=== PATIENT | male | born 1950 | race Caucasian/White ===

== ENCOUNTER → 2017-11-03 08:48 | Outpatient (CLI) | payer MEDICARE, SELFPAY ==
[2017-11-03 09:13] LABS: Alanine Aminotransferase 26 U/L (12-78); Alkaline Phosphatase 80 U/L (46-116); Aspartate Amino Transferase 11 U/L (15-37); Bilirubin,Direct 0.1 mg/dL (0.0-0.2); Bilirubin,Total 0.5 mg/dL (0.2-1.0); Total Protein,Serum 7.2 gm/dL (6.4-8.2)
== END ==
PROVIDERS: Visit Provider Internal Medicine Cardiovascular Disease
DX: E78.5 Hyperlipidemia, unspecified (principal); I10 Essential (primary) hypertension
CPT/HCPCS: 36415; 80076

== ENCOUNTER → 2017-11-19 07:00 | Outpatient (CLI) | payer MEDICARE, SELFPAY ==
[2017-11-19 07:48] LABS: Alanine Aminotransferase 23 U/L (12-78); Albumin Level 3.8 gm/dL (3.4-5.0); Albumin/Globulin Ratio 1.2 (1.1-1.8); Alkaline Phosphatase 80 U/L (46-116); Anion Gap 8.4 mEq/L (5-15); Aspartate Amino Transferase 16 U/L (15-37); Bilirubin,Total 0.3 mg/dL (0.2-1.0); Blood Urea Nitrogen 27 mg/dL (7-18); Calcium 8.4 mg/dL (8.5-10.1); Carbon Dioxide 28 mmol/L (21.0-32.0); Chloride 110 mmol/L (98-107); Chol/HDL Ratio 2.2 (1-3.5); Cholesterol 145 mg/dL (140-200); Creatinine,Serum 1.05 mg/dL (0.70-1.30); Estimated Glomerular Filt Rate 71 ml/min (>60); GFR (African American) 86 ML/MIN (>60); Globulin 3.2 gm/dl (1.3-3.2); Glucose 105 mg/dL (74-106); HDL Cholesterol 66 mg/dL (27-67); LDL Cholesterol 68 mg/dL (0-130); Potassium 4.4 mmoL/L (3.5-5.1); Prostate Specific Ag Screen 0.5 ng/mL (0.0-4.0); Sodium 142 mmol/L (136-145); Triglycerides 57 mg/dL (30-200); VLDL Cholesterol 11 mg/dL (0-40)
== END ==
PROVIDERS: Visit Provider Family Medicine
DX: E78.5 Hyperlipidemia, unspecified (principal); I25.10 Atherosclerotic heart disease of native coronary artery without angina pectoris; I10 Essential (primary) hypertension; Z12.5 Encounter for screening for malignant neoplasm of prostate
CPT/HCPCS: 36415; 80053; 80061; 82652; G0103

== ENCOUNTER → 2017-12-30 06:47 | Outpatient (CLI) | payer MEDICARE, SELFPAY ==
--- NOTE | 2017-12-30 06:50 | NM_ITS ---
CARDIOLITE SPECT MYOCARDIAL PERFUSION SCAN, REST AND STRESS: EXERCISE STRESS [facility] REVIEW QGS EF AND WALL MOTION EVALUATION: QPS - PERFUSION EVALUATION HISTORY: CAD, HTN, Family history DOSE: 10.00 mCi technetium 99m mibi intravenously at rest followed by 29.8 mCi technetium 99m mibi following the intravenous ministration of 0.4 mg of Lexiscan. Resting blood pressure is 178/96. Stress blood pressure 98/51. FINDINGS: Ejection fraction is calculated to be 54%. Stress images reveal reduced activity in the lateral wall while rest images reveal uniform myocardial activity. Gated images calculated ejection fraction of 54% with normal wall motion IMPRESSION: Lateral wall ischemia with normal ejection fraction normal wall motion. At least moderate risk stress test
--- NOTE | 2017-12-30 06:50 | CA_ITS ---
PROCEDURE: 2-D M-mode and color Doppler study INDICATIONS FOR THE TEST: Chest pain COPD Heart Murmur Tobacco Smoking Palpitations Fatigue Syncope Edema HypertensionXDiabetes Mellitus Rheumatic Fever SOBXDOEXObesity HyperlipidemiaX Family History HDX Additional History CAD PATIENT INFORMATION HEIGHT: 71 WEIGHT:209 GENDER: Male B/P:134/79 2-D/M-MODE INTERPRETATION: 2-D MEASUREMENTS OBSERVED VALUES IN CMS Right Ventricular Dimension (RVDd) 3.0 Interventricular Septum (Thickness)(IVsd) 1.0 Left Ventricular Internal Dimensions(LVIDd) 5.2 Left Ventricular Posterior Wall (Thickness)(LVPWd) 1.0 Aortic Root 3.3 Aortic Cusp Separation 1.9 Left Atrial Dimensions (LAD) 3.1 2D 1. Left atrium is mildly enlarged, left ventricle is normal size, mild concentric left ventricular hypertrophy, visually estimated ejection fraction 55% with no obvious regional wall motion abnormality. 2. The right atrium and right ventricle are mildly enlarged with normal contractility. 3. The aortic valve is minimally thickened and fibrosed. 4. The mitral and tricuspid valvular grossly normal. 5. The pulmonic valve is poorly visualized. 6. No significant pericardial effusion noted. DOPPLER INTERROGATION: Doppler interrogation of the aortic, mitral and tricuspid valvular presence of mild aortic, mild mitral and tricuspid regurgitation, tricuspid and jet velocity insufficient for calculation of the right ventricular systolic pressure, grade 1 diastolic dysfunction seen with tissue Doppler evidence of raised left atrial pressure. CONCLUSION: 1. Mildly enlarged left atrium, normal left ventricular size, mild concentric left ventricular hypertrophy, visually estimated ejection fraction 55% with no obvious regional wall motion abnormality, grade 1 diastolic dysfunction seen with tissue Doppler evidence of raised left atrial pressure. 2. Mild aortic, mild mitral and tricuspid regurgitation. 3. No significant pericardial effusion noted.
--- NOTE | 2017-12-30 07:40 | HMH.ITSHM ---
ATENOLOL ASA ATORVASTATIN D3
== END ==
PROVIDERS: PCP Family Medicine; Visit Provider Internal Medicine
DX: I25.10 Atherosclerotic heart disease of native coronary artery without angina pectoris (principal); R06.02 Shortness of breath
CPT/HCPCS: 78452; 93017; 93306; A9502; J2785

== ENCOUNTER → 2018-01-15 07:48 | Outpatient (CLI) | payer MEDICARE, SELFPAY ==
[2018-01-15 09:14] LABS: Chloride 107 mmol/L (98-107); Potassium 4.4 mmoL/L (3.5-5.1); Sodium 142 mmol/L (136-145)
[2018-01-15 09:23] LABS: Anion Gap 12.4 mEq/L (5-15); Blood Urea Nitrogen 24 mg/dL (7-18); Carbon Dioxide 27 mmol/L (21.0-32.0); Creatinine,Serum 0.97 mg/dL (0.70-1.30); Estimated Glomerular Filt Rate 77 ml/min (>60); GFR (African American) 94 ML/MIN (>60); Glucose 96 mg/dL (74-106)
== END ==
PROVIDERS: PCP Family Medicine; Visit Provider Internal Medicine
DX: G47.30 Sleep apnea, unspecified (principal); R40.0 Somnolence; R06.83 Snoring; R06.02 Shortness of breath; I25.10 Atherosclerotic heart disease of native coronary artery without angina pectoris
CPT/HCPCS: 36415; 80048; 95806

== ENCOUNTER 2019-12-16 05:15 | Observation (INO) | payer MEDICARE, SELFPAY ==
[2019-12-16] VITALS (9 sets, daily range): BP systolic 131–188; BP diastolic 73–133; PULSE 50–60; RESP 16–18; TEMP 36.4–37.2; O2SAT 97–99; BMI 26.6
--- NOTE | 2019-12-16 05:12 | ECG_ITS ---
APPROVED REPORT Exam: Resting ECG HR:55 bpm ECG Measurements Heart Rate 55 AXES ME 148 P 68 QRSd 76 QRS 17 QT 478 T 9 QTc 457 <Conclusion> Sinus bradycardia Otherwise normal ECG Electronically signed by : Abdon Lane, 12/19/2019 13:17:45
--- NOTE | 2019-12-16 05:21 | XR_ITS ---
PROCEDURE: XR CHEST 2V CLINICAL HISTORY: chest pain COMPARISON: No exams were available for comparison FINDINGS: The cardiomediastinal silhouette and pulmonary vascularity are within normal limits. No lobar consolidation or collapse. There is some hyperinflation toward the upper lobe suggesting COPD. Clinical correlation needed. No acute bony abnormalities. IMPRESSION: No acute findings. Dictated by: Esdras Ascencio MD 12/16/2019 07:31 Electronically signed by Esdras Ascencio MD in [place] 12/16/2019 07:31
--- NOTE | 2019-12-16 05:32 | HMH.EDCP ---
ED Disposition Clinical Impression: Essential hypertension Chest pain Qualifiers: Chest pain type: precordial pain Qualified Code(s): R07.2 - Precordial pain Disposition: Admitted as Observation Condition on Discharge: Good - Critical Care Critical Care Time: No Attestation: On 12/16/19, the high probability of a clinically significant, sudden or life threatening deterioration of the following system(s) required my full and direct attention, intervention and personal management. The time I documented below is in addition to time spent performing reported procedures but includes the following listed in this critical care notation. Medical Decision Making - Medical Records Medical records reviewed: Yes: I reviewed the patient's medical records. - Lars Inquiry Pt receiving controlled substance: No Vital Signs: 12/16/19 05:16 12/16/19 06:08 12/16/19 06:31 Temperature 97.5 F L Temperature Source Oral Pulse Rate [Right Brachial] 54 L 53 L 51 L Respiratory Rate 16 16 Blood Pressure [Right Arm] 185/110 H 172/90 H 150/133 H Blood Pressure Mean [Right Arm] 135 117 138 Blood Pressure Source [Right Arm] Automatic Cuff Automatic Cuff Automatic Cuff Blood Pressure Position [Right Arm] Sitting Sitting Sitting 02 Sat by Pulse Oximetry 98 98 99 Oxygen Delivery Method Room Air Room Air Room Air - Lab Data Lab results reviewed: Yes: I reviewed the patient's lab results. Lab Results 12/16/19 05:10: WBC 4.8, RBC 3.95 L, Hgb 11.8 L, Hct 35.8 L, MCV 90.6, MCH 29.9, MCHC 33.0, RDW 13.9, Plt Count 136 L, MPV 9.5, Neut % (Auto) 62.3, Lymph % (Auto) 30.6, [place] % (Auto) 5.5, Eos % (Auto) 1.2, Baso % (Auto) 0.3, Neut # (Auto) 3.0, Lymph # (Auto) 1.5, [place] # (Auto) 0.3, Eos # (Auto) 0.1, Baso # (Auto) 0.0 12/16/19 05:10: Sodium 141, Potassium 4.3, Chloride 107, Carbon Dioxide 28, Anion Gap 10.3, BUN 23 H, Creatinine 0.90, Estimated Creat Clear 89, Estimated GFR 84, Est GFR ( Amer) 102, Glucose 140 H, Calcium 8.6, Troponin I 0.02 Result diagrams: 12/16/19 05:10 12/16/19 05:10 Orders (Tests/Meds): ED MEDICATIONS Generic Name Dose Route Start Last Admin Trade Name Freq PRN Reason Stop Dose Admin Sodium Chloride 1,000 mls @ 999 mls/hr 12/16/19 05:30 12/16/19 05:43 Sod Chlor 0.9% 1000ml Bag IV 12/16/19 06:30 999 mls/hr .Q1H1M FRANCY Administration Discontinued Medications Generic Name Dose Route Start Last Admin Trade Name Freq PRN Reason Stop Dose Admin Aspirin 324 mg 12/16/19 05:32 12/16/19 05:43 Aspirin 81mg Chewable Tablet PO 12/16/19 05:33 324 mg ONCE ONE Administration Nitroglycerin 1 gm 12/16/19 05:32 12/16/19 05:43 Nitroglycerin 1 Inch Oint Udp TD 12/16/19 05:33 1 gm ONCE ONE Administration ORDERS Category Date Time Status XR chest 2V Stat Exams 12/16/19 05:21 Taken Troponin I Q3H Lab 12/16/19 08:30 Ordered Troponin I Q3H Lab 12/16/19 11:30 Ordered - Radiology Data #1 Image(s): Chest Image Reviewed: Yes I reviewed the patient's radiology image Preliminary Findings: Normal/NAD - ECG Data Tracing #1 Arrhythmias present: sinus mana Ischemic changes: non-specific ST-T wave changes - Physician Consults Physician Consulted: danilo Reason -: Admission Chest Pain HPI - General Chief Complaint: Chest Pain Stated Complaint: Chest pain Time Seen by Provider: 12/16/19 05:25 Mode of Arrival: Ambulatory Source of Information: Patient, Medical Record Limitations: No Limitations Description of Symptoms (Recalled from ER Triage Doc. by RN): Patient reports he woke up around 0400 in a sweat and some left sided chest pain. Patient reports the pain only lasted a few minutes and he thinks it may have just been some indigestion or gas but his insisted that he come be evaluated. Patient is pain free at this time. - History of Present Illness HPI narrative: pt with acute onset of chest pain for 30 minutes with diaphoresis- pt with hx of
[2019-12-16 05:38] LABS: Chloride 107 mmol/L (98-107); Potassium 4.3 mmoL/L (3.5-5.1); Sodium 141 mmol/L (136-145)
[2019-12-16 05:40] LABS: Basophils % 0.3 % (0.1-2.0); Eosinophils # 0.1 K/mm3 (0.0-0.4); Eosinophils % 1.2 % (0.1-12.0); Hematocrit 35.8 % (42.0-52.0); Hemoglobin 11.8 g/dL (14.1-18.0); Lymphocytes # 1.5 K/mm3 (0.7-4.5); Lymphocytes % 30.6 % (10-50); Mean Corpuscular Hemoglobin 29.9 pg (27.0-31.2); Mean Corpuscular Volume 90.6 fl (80-94); Mean Platelet Volume 9.5 fl (7.4-10.4); Monocytes # 0.3 K/mm3 (0.1-1.0); Monocytes % 5.5 % (1.7-9.3); Neutrophils % 62.3 % (37.0-80.0); Platelet Count 136 K/mm3 (142-424); Red Blood Count 3.95 M/mm3 (4.60-6.20); Red Cell Distribution Width 13.9 % (11.5-17.5); White Blood Count 4.8 K/mm3 (4.8-10.8)
[2019-12-16 05:41] LABS: Anion Gap 10.3 mEq/L (5-15); Blood Urea Nitrogen 23 mg/dl (9-20); Calcium 8.6 mg/dl (8.4-10.2); Carbon Dioxide 28 mmol/L (22.0-30.0); Creatinine Clearance Estimated 89 mL/min (50-200); Estimated Glomerular Filt Rate 84 ml/min (>60); GFR (African American) 102 ML/MIN (>60); Glucose 140 mg/dl (74-100)
[2019-12-16 05:53] LABS: Troponin I 0.02 ng/ml (0.00-0.034)
--- NOTE | 2019-12-16 06:21 | PC.NURSE ---
spoke to and gave her an update. advised her that he will be getting admitted and she can call later and check in on him.
[2019-12-16 07:16] LABS: Chol/HDL Ratio 2.3 (1-3.5); Cholesterol 151 mg/dl (140-200); HDL Cholesterol 65 mg/dl (40-60); Triglycerides 87 mg/dl (30-150); VLDL Cholesterol 17 mg/dL (0-40)
[2019-12-16 07:27] LABS: Direct LDL Cholesterol 83.94 mg/dL (100-129)
--- NOTE | 2019-12-16 07:36 | PC.NURSE ---
Pt arrived to floor 0702, report given to Olya Spencer RN who is aware a bio has not been completed on pt. On tele, weight, vitals and pt resting in supine position, no pain reported.
--- NOTE | 2019-12-16 08:00 | CA_ITS ---
APPROVED REPORT EXAM: Comprehensive 2D, Doppler, and color-flow Echocardiogram Cake Stripper: Susanne Meraz CRT Ht: 6 ft 0 in Wt: 196lbs BSA: 2.11 BP: 150/133 mmHg Indications: Chest Pain, Hyperlipidemia, Hypertension/HDD 2D Dimensions LVOT 2.11 cm (M/F) 1.5-2.5 M-Mode Dimensions RVDd 2.89 cm (0.9-2.6) LVDd 4.84 cm (3.5-5.7) LVDs 3.29 cm (3.5-5.7) IVSd 1.96 cm (0.6-1.1) PWd 0.64 cm (0.6-1.1) EF (Teich) 60.00% FS 32.00% EDV (Teich) 109.60 mL ESV (Teich) 43.80 mL LV Diastology E/A Ratio 1.25 Mitral Valve MV A Velocity 73.00 (40-130 cm/s) Left Ventricle Left atrium is mildly enlarged, left ventricle is normal size, mild concentric left ventricular hypertrophy, visually estimated ejection fraction 55% with no regional wall motion abnormality, grade 2 diastolic dysfunction seen without tissue Doppler evidence of raise left atrial pressure. Right Ventricle Right atrium right ventricle mildly enlarged with normal contractility. Aortic Valve Aortic valve is minimally thickened and calcified, there is no aortic stenosis, there is trace aortic insufficiency. Mitral Valve Mitral valve is grossly normal, there is mild mitral regurgitation. Tricuspid Valve Tricuspid valve is grossly normal, there is mild tricuspid regurgitation, tricuspid regurgitation jet velocity is inadequate for calculation of the right ventricular systolic pressure. Pulmonic Valve Pulmonic valve is poorly visualized. Great Vessels Aortic root is normal size. Pericardium No significant pericardial effusion noted. Conclusion 1. Mild biatrial enlargement, normal left ventricular size, mild concentric left ventricular hypertrophy, visually estimated ejection fraction 55% with no regional wall motion abnormality, grade 2 diastolic dysfunction seen without tissue Doppler evidence of raise left atrial pressure. 2. Mildly enlarged right ventricle with normal contractility. 3. Thickened and calcified aortic valve without aortic stenosis, there is trace aortic insufficiency. 4. Mild mitral and tricuspid regurgitation. 5. No significant pericardial effusion noted. Electronically signed by : Je Faria, 12/16/2019 11:45:13
--- NOTE | 2019-12-16 08:03 | P.CONPHA_ITS ---
[facility] VTE Monitoring - Patient Demographics Admission date: 12/16/19 Report Date: 12/16/19 Time: 08:03 Allergies/Adverse Reactions: Patient Allergies No Known Allergies Allergy (Verified 12/16/19 05:23) Height: 1.83 m Weight: 88.932 kg Patient Problems: Current Active Problems Chest pain (Acute) Essential hypertension (Chronic) - VTE Risk Labs: VTE Related Lab Results Hgb 11.8 g/dL (14.1-18.0) L 12/16/19 05:10 Hct 35.8 % (42.0-52.0) L 12/16/19 05:10 Plt Count 136 K/mm3 (142-424) L 12/16/19 05:10 BUN 23 mg/dl (9-20) H 12/16/19 05:10 Creatinine 0.90 mg/dl (0.66-1.25) 12/16/19 05:10 Estimated Creat Clear 89 mL/min (50-200) 12/16/19 05:10 Was VTE Risk Assessment Performed: Yes VTE Score: 3 VTE Risk Level: Low Risk Clinical Trial Participant: No - Prophylaxis VTE Prophylaxis Ordered?: Yes Types of VTE Prophylaxis: TEDS Knee High
--- NOTE | 2019-12-16 08:27 | HMH.HP ---
*Admission Date: 12/16/19 <Diane Glover 12/16/19 08:33> *Chief complaint: chest pain <Diane Glover 12/16/19 08:33> *History of present illness: Mr. De Los Santos is a 69-year-old male with a history of hypertension, ASCVD, and hyperlipidemia who states he woke up at 4 AM last night having pain in the left side of his chest. He states it felt like somebody was sticking him with a needle. He was very sweaty but he denies any shortness of breath or radiation of pain. He states the pain lasted approximately 1 hour and his convinced him to come to the ER for evaluation. By the time he reached the emergency room his pain had resolved and has not returned. His troponin was negative. He is currently having an echo. <Diane Glover 12/16/19 08:33> [facility] History I have reviewed the patient's past medical history: Yes <Diane Glover 12/16/19 08:33> Medical History: Reports:: Coronary Artery Disease, Hyperlipidemia, Hypertension Denies:: Diabetes Mellitus Type 1, Diabetes Mellitus Type 2, MRSA <Diane Glover 12/16/19 08:33> *Have you ever received a pneumonia vaccine?: No <Diane Glover 12/16/19 08:33> *Have you received a flu vaccine this season?: No <Diane Glover 12/16/19 08:33> Other Surgeries: Yes: Cardiac Catheterization, Colonoscopy, Other (vasectomy) <Diane Glover 12/16/19 08:33> Amputation: No <Diane Glover 12/16/19 08:33> Fractures: No <Diane Glover 12/16/19 08:33> - *Social History Educational Level: Completed High School <Diane Glover 12/16/19 08:33> Smoking Status: Never smoker <Diane Glover 12/16/19 08:33> Alcohol Intake: never <Diane Glover 12/16/19 08:33> Alcohol Intake Frequency:: other <Diane Glover 12/16/19 08:33> Substance Use Type: denies use <Diane Glover 12/16/19 08:33> *Occupational Status:: retired <Diane Glover 12/16/19 08:33> Housing: house <Diane Glover 12/16/19 08:33> Household Members: spouse <Diane Glover 12/16/19 08:33> *Travel in the last 8 weeks: None <Diane Glover 12/16/19 08:33> Family Hx:: Cancer, Heart Attack, Hypertension <Diane Glover 12/16/19 08:33> Review of Systems - Constitutional Denies body ache(s), Denies chills, Denies fever(s) <Diane Glover 12/16/19 08:33> - Eyes Denies blurry vision, Denies double vision <Diane Glover 12/16/19 08:33> - ENT Reports nasal congestion, Denies sore throat <Diane Glover 12/16/19 08:33> - *Cardiovascular Reports chest pain, Reports excessive sweating, Denies shortness of breath, Denies rapid, pounding, or irregular heartbeat <Diane Glover 12/16/19 08:33> - *Respiratory Reports cough, Denies chest congestion, Denies shortness of breath <Diane Glover 12/16/19 08:33> - *Gastrointestinal Denies abdominal pain, Denies loose stools, Denies nausea, Denies vomiting <Diane Glover 12/16/19 08:33> - *Genitourinary Denies difficulty urinating, Denies painful urination <Diane Glover 12/16/19 08:33> - *Musculoskeletal Denies joint pain <Diane Glover 12/16/19 08:33> - *Neurologic Denies headache(s), Denies seizure-like activity, Denies dizziness, Denies weakness <Diane Glover 12/16/19 08:33> Meds Home Medications Medication Instructions Recorded Confirmed Type atenolol 50 mg tablet 50 mg PO DAILY tab 12/03/17 12/16/19 History atorvastatin 20 mg tablet 20 mg PO HS tab 12/03/17 12/16/19 History cholecalciferol (vitamin D3) 25 1,000 unit PO HS cap 12/03/1720 History mcg (1,000 unit) capsule Losartan Potassium [Cozaar 100mg 100 mg PO DAILY #90 tab 12/16/19 Rx Tablets] hydroCHLOROthiazide [HCTZ 12.5mg 12.5 mg PO DAILY #30 cap 12/16/19 Rx capsule] <Gume Joshua - 12/23/19 16:53> Allergies Allergy/AdvReac Type Severity Reaction Status Date / Time No Known Allergies Allergy Verified 12/16/19 05:23 <Gume Joshua - 12/23/19 16:53> Exam Vital signs and Labs for Last 24 Hours: Te
[2019-12-16 09:07] LABS: Troponin I 0.02 ng/ml (0.00-0.034)
--- NOTE | 2019-12-16 09:12 | HMH.CNCARD ---
History of Present Illness Consult date: 12/16/19 Requesting physician: Gume Joshua Consult reason: chest pain Chief complaint: chest pain, hypertension Additional Medical History:: 1. Hypertension 2. Normal coronary arteries, 01/2018 with normal left ventricular end-diastolic pressure and normal left ventricular ejection fraction 3. History of vasectomy in his early 20s complicated postop with infection with bilateral pneumothorax requiring bilateral chest tubes and ultimately tracheostomy, [facility] History of present illness: Mr. De Los Santos is a 69-year-old male with a history of hypertension, ASCVD, and hyperlipidemia who states he woke up at 4 AM last night having pain in the left side of his chest. He states it felt like somebody was sticking him with a needle. He was very sweaty but he denies any shortness of breath or radiation of pain. He states the pain lasted approximately 1 hour and his convinced him to come to the ER for evaluation. By the time he reached the emergency room his pain had resolved and has not returned. His troponin was negative. He is currently having an echo. The above for Diane Glover PA-C for Dr. Joshua Patient denies any recent exertional chest pain, pressure or tightness. He denies any headaches, blurred vision or elevation of blood pressure although he does not check his blood pressure frequently. He did check his blood pressure this morning due to the chest pain and relates that it was in the 180/90 mmHg range initially and then 180/70 mmHg range prior to coming to the ER. He is very conscientious of his diet and denies increase in salt. He denies any new medications. He remains compliant with his medications at home. [facility] History Medical History: Reports:: Coronary Artery Disease, Hyperlipidemia, Hypertension Denies:: Diabetes Mellitus Type 1, Diabetes Mellitus Type 2, MRSA *Have you ever received a pneumonia vaccine?: No *Have you received a flu vaccine this season?: No Other Surgeries: Yes: No Previous Surgery, Cardiac Catheterization, Colonoscopy, Other (vasectomy) Amputation: No Fractures: No - *Social History Educational Level: Completed High School Smoking Status: Never smoker Alcohol Intake: never Alcohol Intake Frequency:: other Substance Use Type: denies use *Occupational Status:: retired Housing: house Household Members: spouse *Travel in the last 8 weeks: None Family Hx:: Cancer, Heart Attack, Hypertension Meds Home Medications Medication Instructions Recorded Confirmed Type atenolol 50 mg tablet 50 mg PO DAILY tab 12/03/17 12/16/19 History atorvastatin 20 mg tablet 20 mg PO HS tab 12/03/17 12/16/19 History cholecalciferol (vitamin D3) 25 1,000 unit PO HS cap 12/03/17 12/16/19 History mcg (1,000 unit) capsule Losartan Potassium [Cozaar 50mg 50 mg PO DAILY 12/16/19 12/16/19 History Tablets] Allergies Allergy/AdvReac Type Severity Reaction Status Date / Time No Known Allergies Allergy Verified 12/16/19 05:23 Review of Systems - Review of Systems Review of systems:: pertinent systems reviewed and negative unless documented below - *Cardiovascular Reports chest pain - *Respiratory Denies cough, Denies shortness of breath - *Gastrointestinal Denies loose stools, Denies nausea, Denies vomiting - *Genitourinary Denies blood in urine - *Musculoskeletal Denies joint pain, Denies back pain - *Neurologic Denies headache(s), Denies seizure-like activity, Denies dizziness, Denies weakness Exam Vital signs and Labs for Last 24 Hours: Temp Pulse Resp BP Pulse Ox 97.6 F 54 L 18 188/96 H 99 12/16/19 07:06 12/16/19 07:06 12/16/19 07:06 12/16/19 07:06 12/16/19 07:06 Laboratory Results - last 24 hr 12/16/19 05:10: WBC 4.8, RBC 3.95 L, Hgb 11.8 L, Hct 35.8 L, MCV 90.6, MCH 29.9, MCHC 33.0, RDW 13.9, Plt Count 136 L, MPV 9.5, Neut % (Auto) 62.3, Lymph % (Auto) 30.6, [place] % (Auto) 5.5, E
[2019-12-16 12:35] LABS: Troponin I 0.01 ng/ml (0.00-0.034)
--- NOTE | 2019-12-16 16:28 | HMH.DCSUM ---
General - General Admission date:: 12/16/19 <Gume Joshua - 12/23/19 16:51> 12/16/19 <Diane Glover - 12/16/19 16:31> Discharge date: 12/16/19 <Diane Glover - 12/16/19 16:31> HPI HPI: Mr. De Los Santos is a 69-year-old male with a history of hypertension, ASCVD, and hyperlipidemia who states he woke up at 4 AM last night having pain in the left side of his chest. He states it felt like somebody was sticking him with a needle. He was very sweaty but he denies any shortness of breath or radiation of pain. He states the pain lasted approximately 1 hour and his convinced him to come to the ER for evaluation. By the time he reached the emergency room his pain had resolved and has not returned. His troponin was negative. He is currently having an echo. <Diane Glover - 12/16/19 16:31> Hospital Course Hospital Course: The patient's initial chest x-ray showed nothing acute. His cardiac enzymes were normal x3. He was seen in consultation by cardiology and they felt he was having transient chest pain with associated elevated blood pressure. His EKG showed no acute ST segment changes and his echo showed a preserved ejection fraction. In light of his known normal coronary arteries by cath less than 2 years ago, and his normal troponin, they wanted to control the patient's blood pressure and felt he would require no further evaluation from a cardiac standpoint. They increased his losartan to 100 mg daily and added low-dose HCTZ 12.5 mg daily. He was also given his normal dose of atenolol. His blood pressure improved. His heart rate did decrease into the 50s with the atenolol. He was stable to be discharged home with a new prescription for losartan and HCTZ. He will follow-up with Dr. Joshua in the office in 2 weeks. <Diane Glover - 12/16/19 16:41> Objective Vital signs: Temp Pulse Resp BP Pulse Ox 98.9 F 57 L 16 161/96 H 97 12/16/19 16:00 12/16/19 16:00 12/16/19 16:00 12/16/19 16:00 04/23/20 16:00 <Gume Joshua - 12/23/19 16:51> Temp Pulse Resp BP Pulse Ox 97.8 F 60 18 131/73 97 12/16/19 13:00 12/16/19 16:00 12/16/19 13:00 12/16/19 13:00 12/16/19 13:00 <Diane Glover - 12/16/19 16:31> Narrative: - Constitutional no acute distress - *Routine HEENT Exam Head: Present: normocephalic Eye: Present: EOMI, PERRL ENT: Present: mucous membranes moist - *Routine Neck Exam Present: supple. Absent: lymphadenopathy - *Routine Respiratory Exam Present: CTA bilaterally - *Routine Cardiovascular Exam Present: RRR - *Routine Abdominal Exam Present: soft, normoactive bowel sounds. Absent: tenderness - *Routine Extremities Exam Absent: cyanosis, clubbing, edema - *Routine Skin Exam Present: warm. Absent: rash - *Routine Neurological Exam Present: alert, oriented X3 <Diane Glover - 12/16/19 16:31> Results Labs on day of discharge: Labs from last 24 hours 12/16/19 12/16/19 12/16/19 12:03 08:36 05:10 WBC RBC Hgb Hct MCV MCH MCHC RDW Plt Count MPV Neut % (Auto) Lymph % (Auto) [place] % (Auto) Eos % (Auto) Baso % (Auto) Neut # (Auto) Lymph # (Auto) [place] # (Auto) Eos # (Auto) Baso # (Auto) Sodium Potassium Chloride Carbon Dioxide Anion Gap BUN Creatinine Estimated Creat Clear Estimated GFR Est GFR ( Amer) Glucose Calcium Magnesium 2.0 Troponin I 0.01 0.02 Triglycerides 87 Cholesterol 151 LDL Cholesterol Direct 83.94 L VLDL Cholesterol 17 HDL Cholesterol 65 H Cholesterol/HDL Ratio 2.3 12/16/19 12/16/19 05:10 05:10 WBC 4.8 RBC 3.95 L Hgb 11.8 L Hct 35.8 L MCV 90.6 MCH 29.9 MCHC 33.0 RDW 13.9 Plt Count 136 L MPV 9.5 Neut % (Auto) 62.3 Lymph % (Auto) 30.6 [place] % (Auto) 5.5 Eos % (Auto) 1.2 Baso % (Auto) 0.3 Neut # (Auto) 3.0 Lymph #
--- NOTE | 2019-12-16 17:15 | PC.NURSE ---
THIS RN PROVIDED D/C INSTRUCTIONS TO PATIENT. PROVIDED EDUCATION ON NEW PRESCRIPTIONS OF LOSARTAN DOSAGE AND HYDROCHLOROTHIAZIDE. PER HEATHER VOGEL. PATIENT IS TO TAKE 2 50MG OF LOSARTAN UNTIL NEW PRESCRIPTION OF 100MG LOSARTAN ARRIVES BY MAIL. THEN PATIENT IS TO TAKE 1 100MG TABLET DAILY. PATIENT VERBALIZED AN UNDERSTANDING. PATIENT IS ALSO TO MAIL READER NEW PRESCRIPTION OF HYDROCHLOROTHIAZIDE AT [facility] THIS EVENING.THIS RN ALSO PROVIDED NEW MEDICATION INFORMATION TO PATIENT'S SPOUSE LOVE OVER THE TELEPHONE AND SPOUSE VERBALIZED AN UNDERSTANDING. NO OTHER CONCERNS AT THIS TIME.
== END 2019-12-16 17:45 | disposition home or self-care (01) ==
LOC: ER 05:29 → 2ND 06:44
PROVIDERS: Admitting Provider Family Medicine; Emergency Provider Emergency Medicine; PCP Family Medicine; Visit Provider Family Medicine
DX: R07.9 Chest pain, unspecified (principal); I25.10 Atherosclerotic heart disease of native coronary artery without angina pectoris; I10 Essential (primary) hypertension; E78.5 Hyperlipidemia, unspecified; Z79.899 Other long term (current) drug therapy
CPT/HCPCS: 71046; 80048; 80061; 83735; 84484; 85025; 93005; 93306; 96365; 99284; G0378

== ENCOUNTER 2024-01-20 08:04 | Day surgery (SDC) | payer MEDICARE, SELFPAY ==
[2024-01-20] MEDS: TETRACAINE 0.5% OPTH SOL 15ML OP ×3 (09:20→09:30)
[2024-01-20] MEDS: CYCLOPENTOLATE 2% OPHTH SOLN 2ML BOTTLE OP ×3 (09:20→09:30)
[2024-01-20] MEDS: PHENYLEPHRINE 2.5% OPHTH SOLN 2ML OP ×3 (09:20→09:30)
[2024-01-20 09:27] VITALS: BP 153/85; PULSE 60; RESP 16; TEMP 36.4; O2SAT 100; BMI 27.4
[2024-01-20] MEDS: SODIUM CHLORIDE 0.9% 10ML FLUSH SYRINGE 10 ML IV ×2 (09:35→10:05)
[2024-01-20 10:00] VITALS: BP 134/80; PULSE 68; RESP 18; TEMP 36.6; O2SAT 100
[2024-01-20 10:05] VITALS: BP 148/77; PULSE 66; RESP 18; TEMP 36.6; O2SAT 99
[2024-01-20] MEDS: MIDAZOLAM 2MG/2ML VIAL 1 MG IV (10:05)
[2024-01-20] MEDS: TRI-MOXI 15MG/1MG/ML 1ML OPHTH VIAL 1 ML OP (10:09)
[2024-01-20 10:10] VITALS: BP 141/81; PULSE 64; RESP 18; TEMP 36.6; O2SAT 100
[2024-01-20] MEDS: LIDOCAINE 1% PF 2ML AMPULE 2 ML IJ (10:10)
[2024-01-20] MEDS: TIMOLOL 0.5% OPTH SOLN 5ML OP (10:10)
[2024-01-20 10:15] VITALS: BP 139/82; PULSE 64; RESP 18; TEMP 36.6; O2SAT 100
[2024-01-20 10:20] VITALS: BP 127/57; PULSE 62; RESP 18; TEMP 36.7; O2SAT 100
--- NOTE | 2024-02-03 13:18 | HMH.PROCNOTE ---
[facility] Procedure Note Date: 01/20/24 Time: 13:19 Procedure Note:: Preoperative Diagnosis: Cataract combined NS Cortical Complex [Right] Eye Postop diagnosis: same Operation: Microscopic phacoemulsification with intraocular lens implant [Right] Eye Specimen: None Blood Loss: None The patient was examined in the office with a complaint of poor vision in the [right] eye. The patient reports that this interferes with ADLs such as reading, watching TV and/or driving or the vision is like looking through a foggy haze and is very troubling. The patient was examined and found to have a visually significant cataract with best corrected vision of [20/400] by refraction and/or glare testing. Treatment options, risks and benefits were explained and the patient elected to have cataract surgery in an attempt to improve their vision. The patient had the eye anesthetized with topical tetracaine, the eye ways prepped and draped in the usual fashion for cataract surgery. A paracentesis and a temporal keratotomy were made. 0.2cc of 1% lidocaine PF was placed into the anterior chamber. And aqueous/viscoelastic exchange was done and a 360 degree capsulorexis was performed. Through hydrodissection and delineation with BSS on a cannula was done. The lens nucleus was phecoemulsified with CDE of [5.79]. Residual cortical material was removed using automated I&A The capsular bag was deepened with viscoelastica and a PCIOL was placed in the capsular bag with good centration and stability. Residual viscoelastic was removed using automated I&A. The keratotomy incision was hydrated with BSS on a cannula. The wound were checked and found to be water tight. IOP was checked digitally and adjusted as needed so as not to be too high. 1 drop of timolol 0.5%, ofloxacin, prednisolone acetate and ketorolac was instilled and eye shield taped over the eye. The patient was taken to recovery in good condition and will be seen postoperatively.
== END 2024-01-20 10:35 | disposition home or self-care (01) ==
PROVIDERS: PCP Family Medicine; Visit Provider Ophthalmology
PROC: (CPT 66984; principal; 2024-01-20 10:30)
DX: H25.11 Age-related nuclear cataract, right eye (principal); H53.8 Other visual disturbances
CPT/HCPCS: 66984; V2632

== ENCOUNTER 2024-02-03 08:03 | Day surgery (SDC) | payer MEDICARE, SELFPAY ==
[2024-02-03] MEDS: PHENYLEPHRINE 2.5% OPHTH SOLN 2ML OP ×3 (09:10→09:11)
[2024-02-03] MEDS: CYCLOPENTOLATE 2% OPHTH SOLN 2ML BOTTLE OP ×3 (09:10→09:11)
[2024-02-03] MEDS: TETRACAINE 0.5% OPTH SOL 15ML OP ×3 (09:10→09:11)
[2024-02-03 09:14] VITALS: BP 154/77; PULSE 61; RESP 18; TEMP 36.4; O2SAT 96; BMI 26.9
[2024-02-03 10:36] VITALS: BP 140/75; PULSE 56; RESP 18; TEMP 36.6; O2SAT 99
[2024-02-03] MEDS: MIDAZOLAM 2MG/2ML VIAL 1 MG IV (10:36)
[2024-02-03] MEDS: SODIUM CHLORIDE 0.9% 10ML FLUSH SYRINGE 10 ML IV (10:36)
[2024-02-03 10:41] VITALS: BP 146/70; PULSE 64; RESP 18; TEMP 36.6; O2SAT 98
[2024-02-03] MEDS: LIDOCAINE 1% PF 2ML AMPULE 2 ML IJ (10:42)
[2024-02-03] MEDS: TIMOLOL 0.5% OPTH SOLN 5ML OP (10:42)
[2024-02-03] MEDS: TRI-MOXI 15MG/1MG/ML 1ML OPHTH VIAL 1 ML OP (10:42)
[2024-02-03 10:46] VITALS: BP 144/68; PULSE 63; RESP 18; TEMP 36.6; O2SAT 99
[2024-02-03 10:51] VITALS: BP 133/73; PULSE 63; RESP 18; TEMP 36.6; O2SAT 99
[2024-02-03 10:57] VITALS: BP 140/81; PULSE 71; RESP 16; TEMP 36.6; O2SAT 98
--- NOTE | 2024-02-03 13:05 | [facility].PROCNOTE ---
[facility] Procedure Note Date: 02/03/24 Time: 13:05 Procedure Note:: Preoperative Diagnosis: Cataract combined NS Cortical Complex [Left] Eye Postop diagnosis: same Operation: Microscopic phacoemulsification with intraocular lens implant [Left] Eye Specimen: None Blood Loss: None The patient was examined in the office with a complaint of poor vision in the [left] eye. The patient reports that this interferes with ADLs such as reading, watching TV and/or driving or the vision is like looking through a foggy haze and is very troubling. The patient was examined and found to have a visually significant cataract with best corrected vision of [20/400] by refraction and/or glare testing. Treatment options, risks and benefits were explained and the patient elected to have cataract surgery in an attempt to improve their vision. The patient had the eye anesthetized with topical tetracaine, the eye ways prepped and draped in the usual fashion for cataract surgery. A paracentesis and a temporal keratotomy were made. 0.2cc of 1% lidocaine PF was placed into the anterior chamber. And aqueous/viscoelastic exchange was done and a 360 degree capsulorexis was performed. Through hydrodissection and delineation with BSS on a cannula was done. The lens nucleus was phecoemulsified with CDE of [4.60]. Residual cortical material was removed using automated I&A The capsular bag was deepened with viscoelastica and a PCIOL was placed in the capsular bag with good centration and stability. Residual viscoelastic was removed using automated I&A. The keratotomy incision was hydrated with BSS on a cannula. The wound were checked and found to be water tight. IOP was checked digitally and adjusted as needed so as not to be too high. 1 drop of timolol 0.5%, ofloxacin, prednisolone acetate and ketorolac was instilled and eye shield taped over the eye. The patient was taken to recovery in good condition and will be seen postoperatively.
== END 2024-02-03 11:01 | disposition home or self-care (01) ==
PROVIDERS: PCP Family Medicine; Visit Provider Ophthalmology
PROC: (CPT 66984; principal; 2024-02-03 10:30)
DX: H25.12 Age-related nuclear cataract, left eye (principal)
CPT/HCPCS: 66984; J2250; V2632